=== PATIENT | male | born 1955 | race Hispanic/Latino ===

== ENCOUNTER 2019-03-27 05:50 | Day surgery (SDC) | payer OTHER, MEDICARE ==
[2019-03-25 13:20] LABS: BASOPHILS % (AUTO) 0.4 % (0.0-5.0); EOSINOPHILS % (AUTO) 2.6 % (0.0-8.0); HEMATOCRIT 46.3 % (42-54); MEAN CORPUSCULAR HEMOGLOBIN 28.2 pg (27.0-33.0); MEAN CORPUSCULAR HGB CONC 33.6 g/dL (32.0-36.0); MONOCYTES % (AUTO) 7.2 % (3.0-13.0); NEUTROPHILS % (AUTO) 67.8 % (40.0-77.0); PLATELET COUNT (AUTO) 215 K/uL (130-400); RED BLOOD CELL COUNT(AUTO) 5.51 MIL/uL (4.50-6.20); RED CELL DISTRIBUTION WIDTH 15.5 % (11.0-15.5); WHITE BLOOD COUNT (AUTO) 8.2 K/uL (4.8-10.8)
[2019-03-25 13:27] LABS: CREATININE 0.9 mg/dL (0.5-1.5); POTASSIUM 3.9 mmol/L (3.5-5.1)
[2019-03-25 13:32] LABS: APPEARANCE,URINE Clear (CLEAR); BILIRUBIN,URINE Negative (NEGATIVE); COLOR,URINE Yellow (YELLOW); GLUCOSE, URINE (UA) >=1000 mg/dL (NEGATIVE); KETONES,URINE Negative (NEGATIVE); LEUKOCYTE ESTERASE ,URINE Negative (NEGATIVE); NITRATE,URINE Negative (NEGATIVE); OCCULT BLOOD,URINE Negative (NEGATIVE); PH,URINE 5.5 (5.0-8.0); PROTEIN,URINE Trace mg/dL (NEGATIVE); UROBILINOGEN,URINE 0.2 mg/dL (0.2-1.0)
[2019-03-25 13:35] LABS: INR 0.93 (0.85-1.15); PROTHROMBIN TIME 9.8 SEC (9.6-11.6)
[2019-03-25 13:46] VITALS: BP 143/65
[2019-03-25 13:52] LABS: BACTERIA,URINE None Seen /HPF (None Seen); RBC,URINE 0-1 /HPF (0-1); SQUAMOUS EPITHELIAL CELL,UR 0-2 /HPF (0-2); WBC,URINE 0-1 /HPF (0-1)
[2019-03-27] VITALS (8 sets, daily range): BP systolic 100–120; BP diastolic 53–62
[~2019-03-27] VITALS: Ht 166.4 cm; Wt 92.8 kg
[~2019-03-27 05:50] MED LIST: AA8/1CAP3 PO; ASPI-1026 PO; BUSP15TA3 PO; DOXE25CA3 PO; EMPA25TA PO; IBUP-2070 PO; INSUL; LORA10CA9 PO; LOSA100T58 PO; METF-446 PO; ROSU40TA21 PO; SODIUM CHLORIDE 0.9% 500ML 500 ML IV SCH
--- NOTE | 2019-03-27 06:05 | NUR ---
PATIENT ARRIVED PATIENT ARRIVED TO DAY PATIENT WITHOUT ANY FAMILY PRESENT. PATIENT STATES THAT HE WILL BE CALLING SOMEONE TO PICK HIM UP AFTER THE PROCEDURE IS COMPLETE. PATIENT AAOX3, RESPIRATIONS UNLABORED, VITAL SIGNS STABLE, PATIENT DENIES ANY PAIN AT THIS TIME. PROCEDURE EXPLAINED AND VERIFIED WITH PATIENT, PT VERBALIZES UNDERSTANDING.
[2019-03-27] MEDS ORDERED: INSU100V12 SQ (07:04)
[2019-03-27] MEDS ORDERED: FISH1CAP27 PO (07:04)
[2019-03-27] MEDS ORDERED: METO-391 PO (07:04)
[2019-03-27] MEDS ORDERED: ASPI-1005 PO (07:04)
[2019-03-27] MEDS ORDERED: GABA-529 PO (07:04)
[2019-03-27] MEDS ORDERED: IOHEXOL 350 MG/ML 100ML INFUS..BTL IV ONE (07:14)
[2019-03-27] MEDS ORDERED: HEPARIN SODIUM 1000UNIT/ML 10ML VIAL ONE (07:14)
[2019-03-27] MEDS ORDERED: IOHEXOL-350 50ML VIAL IV ONE (07:14)
[2019-03-27] MEDS ORDERED: VERAPAMIL HCL 2.5 MG/ML VIAL ONE (07:14)
[2019-03-27] MEDS ORDERED: NITROGLYCERIN 5 MG/ML 10 ML VIAL IV ONE (07:14)
[2019-03-27] MEDS ORDERED: LIDOCAINE HCL 2% 20ML ONE (07:15)
--- NOTE | 2019-03-27 07:15 | NUR ---
TRANSFERRED PATIENT TAKEN TO [facility] VIA BED BY STEPHANIA RN
[2019-03-27] MEDS ORDERED: SODIUM CHLORIDE 0.9% 1000ML 1,000 ML IV ONE (07:27)
[2019-03-27] MEDS ORDERED: MIDAZOLAM HCL 1 MG/ML 2ML VIAL ONE (08:07)
[2019-03-27] MEDS ORDERED: SODIUM CHLORIDE 0.9% 1000ML 1,000 ML IV SCH (08:55)
[2019-03-27] MEDS ORDERED: GLUCAGON 1MG KIT 1 MG ML IM PRN (09:00)
[2019-03-27] MEDS ORDERED: DEXTROSE 50%-WATER 50 ML DISP.SYRIN IV PRN (09:00)
--- NOTE | 2019-03-27 09:05 | NUR ---
PATIENT RETURNED PATIENT BROUGHT BACK FROM [facility] VIA BED BY VIK [place]. PATIENT AAO X3, RESPIRATIONS UNLABORED, VITAL SIGNS STABLE. RIGHT WRIST WITH TR BAND IN PLACE. NO HEMATOMA, NO BLEEDING OR DRAINAGE NOTED. RADIAL PULSE STRONG TO RIGHT HAND. CAPILLARY REFILL <3SECS TO RIGHT HAND. PATIENT STATES HE HAS A HEADACHE, PAIN 6 OUT OF 10 TO HEAD.
[2019-03-27] MEDS ORDERED: ACETAMINOPHEN 325 MG TAB ONE (09:28)
[2019-03-27] MEDS ORDERED: ACETAMINOPHEN 325 MG TAB PO SCH (09:30)
--- NOTE | 2019-03-27 09:45 | NUR ---
TR BAND/CATH SITE TR BAND TO RIGHT WRIST, RADIAL PULSES PRESENT STRONG BILATERALLY. CAPILLARY REFILL <3 SECS TO FINGERS. NO BLEEDING,NO HEMATOMA, NO DRAINAGE NOTED TO CATH SITE. 2ML OF AIR REMOVED FROM TR BAND USING SYRINGE. NO BLEEDING NOTED, TR BAND IN PLACE. PATIENT TOLERATED WELL.
--- NOTE | 2019-03-27 10:55 | NUR ---
TR BAND/CATH SITE TR BAND TO RIGHT WRIST, RADIAL PULSES PRESENT STRONG BILATERALLY. CAPILLARY REFILL <3 SECS TO FINGERS. NO BLEEDING,NO HEMATOMA, NO DRAINAGE NOTED TO CATH SITE. REMAINDER 4ML OF AIR REMOVED FROM TR BAND USING SYRINGE. NO BLEEDING NOTED, PT TOLERATED WELL. NO HEMATOMA OR DRAINAGE PRESENT. TR BAND REMOVED AND 2X2 GAUZE APPLIED AND COVERED WITH BANDAID. PATIENT INSTRUCTED TO KEEP WRIST STRAIGHT. PT VERBALIZED UNDERSTANDING.
== END 2019-03-27 13:30 | disposition home or self-care (01) ==
LOC: DAH 05:50
PROVIDERS: ATTEND Internal Medicine Cardiovascular Disease
DX: I25.10 Atherosclerotic heart disease of native coronary artery without angina pectoris (principal); Z79.82 Long term (current) use of aspirin; Z79.84 Long term (current) use of oral hypoglycemic drugs; Z79.899 Other long term (current) drug therapy; Z95.5 Presence of coronary angioplasty implant and graft
CPT/HCPCS: 36415; 71045; 80048; 81001; 82948 ×3; 85025; 85610; 85730; 93005; 93458; A4606; C1769 ×2; C1894; J1644 ×2; J2250; J3490 ×3; J7030; Q9965 ×2; Q9967 ×2; 99156; 99157

== ENCOUNTER → 2023-06-18 | Outpatient (CLI) | payer OTHER, MEDICARE ==
[~2023-06-18] MED LIST changes: -AA8/1CAP3 PO; -ASPI-1026 PO; +ASPI-1197 PO; -BUSP15TA3 PO; +CARB15DR97 OP; +CHOL400C9 PO; -DOXE25CA3 PO; +DULO30CA52 PO; +FURO20TA4 PO; +GLIP5TAB15 PO; -IBUP-2070 PO; +ICOS1CAP PO; +INSU3INS3 SQ; -INSUL; -LORA10CA9 PO; -LOSA100T58 PO; +LOSA25TA41 PO; +MECO10005 PO; +METO-391 PO; +MIRT-72 PO; +PEN1DIS.48 MC; -SODIUM CHLORIDE 0.9% 500ML 500 ML IV SCH; +TAMS-1 PO; +TRAM50TA4 PO
[2023-06-18 13:04] LABS: CHOLESTEROL 200 mg/dL (<200); HDL CHOLESTEROL 62 mg/dL (29-71); LDL DIRECT 115 mg/dL (0-99); TRIGLYCERIDES 122 mg/dL (30-200)
== END | disposition home or self-care (01) ==
LOC: LAB 11:15
PROVIDERS: ATTEND Internal Medicine Cardiovascular Disease
DX: I25.10 Atherosclerotic heart disease of native coronary artery without angina pectoris (principal); I10 Essential (primary) hypertension; E78.00 Pure hypercholesterolemia, unspecified
CPT/HCPCS: 36415; 80061

== ENCOUNTER → 2023-11-29 | Outpatient (CLI) | payer OTHER, MEDICARE ==
[~2023-11-29] MED LIST changes: +CHOL10CA2 PO; -CHOL400C9 PO
[2023-11-29 12:41] LABS: ALBUMIN 3.7 g/dL (3.5-5.0); BILIRUBIN,TOTAL 0.3 mg/dL (0.2-1.0); CREATININE 0.9 mg/dL (0.5-1.3); POTASSIUM 4.6 mmol/L (3.5-5.1); TOTAL PROTEIN, SERUM 7.9 g/dL (6.0-8.3)
== END | disposition home or self-care (01) ==
LOC: LAB 10:30
PROVIDERS: ATTEND Internal Medicine Cardiovascular Disease
DX: E78.2 Mixed hyperlipidemia (principal)
CPT/HCPCS: 36415; 80053; 80061